=== PATIENT | female | born 1935 | race Caucasian/White ===

== ENCOUNTER 2021-01-24 11:57 | Observation (INO) | payer MEDICARE, BC ==
[~2021-01-24] VITALS: Ht 152.4 cm; Wt 50.8 kg
[2021-01-24 13:01] LABS: HEMOGLOBIN 13.4 gm/dl (12.3-15.3); RED BLOOD COUNT 4.04 M/UL (4.00-5.10); WHITE BLOOD COUNT 7.5 K/UL (4.5-11.0)
[2021-01-24] MEDS ORDERED: AMLODIPINE BESYL5 MG PO (14:47)
[2021-01-24] MEDS ORDERED: EXELON1 EACH TOP (14:47)
[2021-01-24] MEDS ORDERED: SPIRONOLACTONE25 MG PO (14:49)
[2021-01-24] MEDS ORDERED: DONEPEZIL HCL10 MG PO (14:50)
[2021-01-25 08:40] LABS: HEMOGLOBIN 12.2 gm/dl (12.3-15.3); RED BLOOD COUNT 3.71 M/UL (4.00-5.10); WHITE BLOOD COUNT 8.1 K/UL (4.5-11.0)
[2021-01-25 12:03] LABS: BUN/CREATININE RATIO 19 (0-10)
[2021-01-26 03:10] LABS: HEMOGLOBIN 13.1 gm/dl (12.3-15.3); RED BLOOD COUNT 3.9 M/UL (4.00-5.10); WHITE BLOOD COUNT 5.6 K/UL (4.5-11.0)
[2021-01-26 03:45] LABS: BUN/CREATININE RATIO 19 (0-10)
[2021-01-26] MEDS ORDERED: SEROQUEL25 MG PO (15:36)
[2021-01-26] MEDS ORDERED: ATIVAN0.5 MG PO (15:40)
== END 2021-01-26 16:55 | disposition home or self-care (01) ==
LOC: ER1 11:57 → MED SURG 4 14:15 → CDU 14:15 → MED SURG 4 14:15
PROVIDERS: Physician Assistant; ADMIT Internal Medicine
DX: G93.40 Encephalopathy, unspecified (principal); F03.91 Unspecified dementia, unspecified severity, with behavioral disturbance; R77.8 Other specified abnormalities of plasma proteins; I08.3 Combined rheumatic disorders of mitral, aortic and tricuspid valves; I25.10 Atherosclerotic heart disease of native coronary artery without angina pectoris; I10 Essential (primary) hypertension; E78.5 Hyperlipidemia, unspecified; Z20.822 Contact with and (suspected) exposure to COVID-19; Z95.1 Presence of aortocoronary bypass graft; Z79.899 Other long term (current) drug therapy
CPT/HCPCS: ECHO; 36415; 36600; 70450; 70551; 71045; 80053; 80307; 81001; 82550; 82553; 82803; 83605; 83874; 84484; 85025; 85027; 87040; 93005; 93306; 96372; 99285; G0378; J1650; U0002